=== PATIENT | male | born 1975 | race African-American/Black ===

== ENCOUNTER 2018-08-03 14:58 | Emergency (ER) | payer BC, MEDICAID ==
[~2018-08-03] VITALS: Ht 177.8 cm; Wt 113.0 kg
[2018-08-03] MEDS ORDERED: KETOROLAC 60MG/2ML VIAL IM ONE (15:30)
[2018-08-03] MEDS ORDERED: CYCLOBENZAPRINE 10MG TABLET PO ONE (15:30)
[2018-08-03 15:46] VITALS: BP 134/91
== END 2018-08-03 15:48 | disposition home or self-care (01) ==
LOC: ER 14:58
DX: M62.830 Muscle spasm of back (principal); I10 Essential (primary) hypertension; Z98.890 Other specified postprocedural states; V43.52XA Car driver injured in collision with other type car in traffic accident, initial encounter; Y93.89 Activity, other specified; Y92.488 Other paved roadways as the place of occurrence of the external cause; Y99.8 Other external cause status
CPT/HCPCS: 96372; 99283; J1885

== ENCOUNTER 2018-08-24 13:12 | Emergency (ER) | payer BC ==
[~2018-08-24] VITALS: Ht 180.3 cm; Wt 90.0 kg
[2018-08-24 13:51] VITALS: BP 164/97
[2018-08-24] MEDS ORDERED: KETOROLAC 60MG/2ML VIAL IM ONE (14:45)
[2018-08-24] MEDS ORDERED: CYCLOBENZAPRINE 10MG TABLET PO ONE (14:45)
== END 2018-08-24 15:46 | disposition home or self-care (01) ==
LOC: ER 13:12
DX: S39.012A Strain of muscle, fascia and tendon of lower back, initial encounter (principal); M54.6 Pain in thoracic spine; I10 Essential (primary) hypertension; E66.9 Obesity, unspecified; Z68.27 Body mass index [BMI] 27.0-27.9, adult; Z98.890 Other specified postprocedural states; Z87.828 Personal history of other (healed) physical injury and trauma; X50.0XXA Overexertion from strenuous movement or load, initial encounter; Y93.89 Activity, other specified; Y92.89 Other specified places as the place of occurrence of the external cause; Y99.8 Other external cause status
CPT/HCPCS: 96372; 99283; J1885